=== PATIENT | male | born 1950 | race Caucasian/White ===

== ENCOUNTER 2016-09-29 09:48 | Outpatient (CLI) | payer BC ==
[2016-09-29] MEDS ORDERED: KLOR-CON20 MEQ ORAL (10:29)
[2016-09-29] MEDS ORDERED: ASPIRIN325 MG ORAL (10:29)
[2016-09-29] MEDS ORDERED: LIPITOR80 MG ORAL (10:29)
[2016-09-29] MEDS ORDERED: MINOXIDIL10 MG PO (10:29)
[2016-09-29] MEDS ORDERED: FISH OIL CAP1000 MG ORAL (10:29)
[2016-09-29] MEDS ORDERED: HYDROCHLOROTHIA25 MG ORAL (10:29)
[2016-09-29] MEDS ORDERED: MULTI VITAMIN1 EACH ORAL (10:29)
[2016-09-29] MEDS ORDERED: PROSCAR5 MG ORAL (10:29)
[2016-09-29] MEDS ORDERED: METOPROLOL TAR100 MG ORAL (10:29)
[2016-09-29] MEDS ORDERED: METFORMIN HCL5000 GM MC (10:29)
[2016-09-29] MEDS ORDERED: AMLODIPINE BESY10 MG ORAL (10:29)
[2016-09-29] MEDS ORDERED: LOSARTAN POTAS100 MG ORAL (10:29)
[2016-09-29] MEDS ORDERED: jardiance (10:36)
--- NOTE | 2016-09-29 10:43 | GI Initial Consult Note ---
YaquelinRosa Leach N.PYsabel 09/29/16 1043: History of Present Illness General Date patient seen: Sep 29, 2016 Time patient seen: 10:29 Referring physician: GIOVANNI Reason for Consultation: COLONOSCOPY SCREENING Present Illness HPI 66 year old male referred by Dr. Jackson for routine colonoscopy. Last colonoscopy per patient over 11 years ago. He also presents today with complaint of occasional mild constipation. Denies any weight loss or changes in dietary habits. Home Meds Reported Medications [jardiance] No Conflict Check, 10 MG 09/29/16 Fish Oil (Fish Oil 1,000 mg Capsule) 1 Each Capsule, 1000 MG ORAL DAILY, CAP 09/29/16 Aspirin* (ASPIRIN*) 325 Mg Tablet, 325 MG ORAL DAILY, TAB 09/29/16 Multivitamin (MULTI VITAMIN DAILY) 1 Each Tablet, 1 TAB ORAL DAILY, #30 TAB 0 Refills 09/29/16 Potassium Chloride (KLOR-CON) 20 Meq Packet, 20 MEQ ORAL DAILY, #30 PKT 0 Refills 09/29/16 Finasteride* (PROSCAR*) 5 Mg Tablet, 25 MG ORAL DAILY, #30 TAB 0 Refills 09/29/16 Metformin Hcl (METFORMIN HCL) 5,000 Gm Powder, 1000 GM MC, GM 09/29/16 Atorvastatin (Lipitor) 80 Mg Tablet, 40 MG ORAL DAILY, TAB 0 Refills 09/29/16 Minoxidil* (LONITEN*) 10 Mg Tablet, 10 MG PO DAILY, TAB 09/29/16 Metoprolol Tartrate* (METOPROLOL TARTRATE*) 100 Mg Tablet, 100 MG ORAL EVERY 12 HOURS, TAB 09/29/16 Losartan Potassium (LOSARTAN POTASSIUM) 100 Mg Tablet, 100 MG ORAL DAILY, TAB 09/29/16 Hydrochlorothiazide* (HYDROCHLOROTHIAZIDE*) 25 Mg Tablet, 25 MG ORAL DAILY, TAB 09/29/16 Amlodipine Besylate* (AMLODIPINE BESYLATE*) 10 Mg Tablet, 10 MG ORAL DAILY, TAB 09/29/16 Med list reviewed/reconciled: Yes Allergies: Coded Allergies: No Known Allergies (Unverified , 09/29/16) Patient History History Provided By: Patient PMH Narrative HTN Elevated Cholesterol DM BPH PSHx B. TKR approximately 20 years ago. Open heart Surgery approx 23 years ago. Mar 2015 - Patient had treadmill test @ [facility] showed 3% ischemia. Pertinent Family History: none Social History: Reports: other - coffee, Denies: alcohol use, drug use, smoking Review of Systems All Other Systems: negative except mentioned in HPI Physical Exam BP 175/87 P 65 97.9 95 RA HT 5'10 WT 245 lbs Sp02 EP Interpretation: reviewed General Appearance: normal inspection, well appearing, no apparent distress, alert, obese Head: normocephalic EENT: normal ENT inspection Neck: full range of motion, supple Respiratory: normal breath sounds, no respiratory distress Cardiovascular: normal rate Gastrointestinal: normal inspection, non tender, soft Rectal: deferred Musculoskeletal: back normal Neurologic: normal inspection, alert, oriented x3, responsive Psychiatric: normal inspection, judgement/insight normal, memory normal Skin: normal inspection, normal color, no rash, warm/dry Lymphatic: normal inspection, no adenopathy GI: Plan Problems: (1) HTN (hypertension) (2) Elevated cholesterol (3) Diabetes mellitus (4) History of BPH (5) History of heart surgery (6) Colonoscopy planned (7) Constipation Plan colonoscopy to be scheduled pending prior authorization, we will contact patient. - [facility] & [employer] prep instructions given and acknowledged. patient requires cardiac clearance prior colonoscopy given history of heart disease and uncontrolled HTN with medications. - patient scheduled to see new product trainer this . Seen with Dr. Mathis. Thank you for referring this patient. SALVATORE MATHIS 09/30/16 1049: History of Present Illness Present Illness Home Meds Reported Medications [jardiance] No Conflict Check, 10 MG 09/29/16 Fish Oil (Fish Oil 1,000 mg Capsule) 1 Each Capsule, 1000 MG ORAL DAILY, CAP 09/29/16 Aspirin* (ASPIRIN*) 325 Mg Tablet, 325 MG ORAL DAILY, TAB 09/29/16 Multivitamin (MULTI VITAMIN DAILY) 1 Each Tablet, 1 TAB ORAL DAILY, #30 TAB 0 Refills 09/29/16 Potassium Chloride (KLOR-CON) 20 Meq Packet, 20 MEQ ORAL DAILY, #30 PKT 0 Refills 09/29/16 Finasteride* (PROSCAR*) 5 Mg Tablet, 25 MG ORAL DAILY, #30 TAB 0 Refills 09/29/16 Metformin Hcl (METFORMIN HCL) 5,000 Gm Powder, 1000 GM MC, GM 09/29/16 Atorvastatin (Lipitor) 80 Mg Tablet, 40 MG ORAL DAILY, TAB 0 Refills 09/29/16 Minoxidil* (LONITEN*) 10 Mg Tablet, 10 MG PO DAILY, TAB 09/29/16 Metoprolol Tartrate* (METOPROLOL TARTRATE*) 100 Mg Tablet, 100 MG ORAL EVERY 12 HOURS, TAB 09/29/16 Losartan Potassium (LOSARTAN POTASSIUM) 100 Mg Tablet, 100 MG ORAL DAILY, TAB 09/29/16 Hydrochlorothiazide* (HYDROCHLOROTHIAZIDE*) 25 Mg Tablet, 25 MG ORAL DAILY, TAB 09/29/16 Amlodipine Besylate* (AMLODIPINE BESYLATE*) 10 Mg Tablet, 10 MG ORAL DAILY, TAB 09/29/16 Allergies: Coded Allergies: No Known Allergies (Unverified , 09/29/16) GI: Plan Plan The patient was seen and examined at bedside and all new and available data was reviewed in the patients chart. I agree with the above findings, impression and plan. (Patient seen earlier today. Signature stamp does not reflect patient encounter time.). -Angelica Castle MDh Hany Awan Sep 29, 2016 10:43 SALVATORE MATHIS Sep 30, 2016 10:49
[2016-09-29 15:00] VITALS: BP 175/87
== END 2016-09-29 10:30 | disposition home or self-care (01) ==
LOC: PAN 09:48
DX: I10 Essential (primary) hypertension (principal); E78.00 Pure hypercholesterolemia, unspecified; E11.9 Type 2 diabetes mellitus without complications; K59.00 Constipation, unspecified; Z79.82 Long term (current) use of aspirin
CPT/HCPCS: 99201